=== PATIENT | female | born 1990 | race Caucasian/White ===

== ENCOUNTER 2019-05-11 11:36 | Outpatient (CLI) | payer OTHER ==
[~2019-05-11] VITALS: Ht 160 cm; Wt 70.0 kg
[2019-05-11 12:09] VITALS: BP 108/58
[2019-05-11] MEDS ORDERED: PREN1TAB60 PO (12:19)
[2019-05-11 12:41] LABS: MICROSCOPIC NOT IND
== END 2019-05-11 13:30 | disposition home or self-care (01) ==
LOC: LDOP 11:36
PROVIDERS: ATTEND Obstetrics & Gynecology
DX: O26.892 Other specified pregnancy related conditions, second trimester (principal); O36.8120 Decreased fetal movements, second trimester, not applicable or unspecified; Z3A.25 25 weeks gestation of pregnancy
CPT/HCPCS: 81003; 87086; 99201; G0463